=== PATIENT | female | born 2000 | race Caucasian/White ===

== ENCOUNTER 2023-03-06 22:00 | Outpatient (REF) | payer OTHER, SELFPAY ==
[2023-03-08 15:09] LABS: Candida species Negative (Negative); Gardnerella vaginalis Positive (Negative); Trichomonas vaginalis Negative (Negative)
[2023-03-11 18:07] LABS: Age Gdln ACOG Testing Note (.); Chlamydia, NAA Negative (Negative); Gonococcus, NAA Negative (Negative); IGP, CtNg, rfx Aptima HPV ASCU Note (.)
== END 2023-03-06 22:01 | disposition home or self-care (01) ==
LOC: LAB 22:00
PROVIDERS: PCP Nurse Practitioner; Visit Provider Nurse Practitioner
DX: Z01.419 Encounter for gynecological examination (general) (routine) without abnormal findings (principal)
CPT/HCPCS: 87480; 87510; 87660; G0145